=== PATIENT | female | born 1945 | race Caucasian/White ===

== ENCOUNTER 2016-10-21 10:15 | Inpatient (IN) ==
[2016-10-21] MEDS ORDERED: IOPAMIDOL 100 ML BOTTLE IJ ONE (10:16)
[2016-10-21] MEDS ORDERED: 0.9 % SODIUM CHLORIDE 1,000 ML IV ONE ×2 (10:28→11:15)
--- NOTE | 2016-10-21 10:58 | Emergency Department Note ---
Fever HPI - General Chief Complaint: Fever Stated Complaint: Fever, pain with urination, urinary frequency Time Seen by Provider: 10/21/16 10:48 Source: patient Mode of arrival: ambulatory Limitations: no limitations - History of Present Illness HPI Narrative: 71-year-old with a history of right flank pain present for the past 5 days. She said urgency, frequency and dysuria and thought she could take care of this on her own as she's been suspecting a UTI where she is running a low-grade temperature of 100 at this time. Complaining of nausea, but there's been no vomiting. - Related Data Home Medications Medication Instructions Recorded Confirmed ipratropium-albuterol 0.5 mg-3 3 ml INHALATION QID PRN ml 06/03/16 10/21/16 mg(2.5 mg base)/3 mL nebulization soln Gabapentin [Neurontin] 200 mg PO HS 10/21/16 10/21/16 Previous Rx's Medication Instructions Recorded Disability Parking Permit #1 each 09/18/15 hydrocodone 7.5 mg-acetaminophen 1 tab PO BID PRN #60 tab 10/24/15 325 mg tablet fluticasone 250 mcg-salmeterol 50 1 inh INHALATION Q12H #60 each 07/07/16 mcg/dose blistr powdr for inhalation ipratropium 20 mcg-albuterol 100 1 inh INHALATION Q6H #4 g 07/07/16 mcg/actuation mist for inhalation tizanidine 2 mg tablet 2 mg PO Q6H PRN #20 tab 09/14/16 prednisone 10 mg tablet 0 PO .COMPLEX #30 tab 09/29/16 Allergies Allergy/AdvReac Type Severity Reaction Status Date / Time codeine Allergy Unknown Verified 10/21/16 10:19 ibandronate sodium Allergy Unknown Verified 10/21/16 10:19 [From Boniva] clarithromycin [From Biaxin] AdvReac Headache Verified 10/21/16 10:19 moxifloxacin [From Avelox] AdvReac Headache Verified 10/21/16 10:19 Review of Systems All systems ED: reviewed and negative except as stated. Genitourinary: Reports: as per HPI, urgency, dysuria, frequency, other (RIGHT FLANK PAIN) Fever PMH - Past Medical History Medical history: Reports: arthritis, asthma, COPD, other (Osteoporosis, polio, COMPRESSION fracture) Surgical history ED: Reports: cholecystectomy Psychiatric history: Reports: no psych history - Social History smoking status: Former smoker Alcohol use: Reports: None Drug use: Reports: none Physical Exam - General Limitations: no limitations General appearance: alert - Head Head exam: atraumatic - Eye Eye exam: Present: normal appearance, PERRL - ENT ENT exam: normal exam, normal oropharynx - Neck Neck exam: Present: normal inspection, full ROM. Absent: trachea midline - Chest Chest inspection: Present: normal inspection - Respiratory Respiratory exam: Present: normal lung sounds bilaterally. Absent: respiratory distress, wheezes - Cardiovascular Cardiovascular exam: Present: regular rate, normal rhythm. Absent: bradycardia , tachycardia - Abdominal Exam Abdominal exam: Present: soft. Absent: distention, tenderness, guarding, rebound - Extremities Exam Extremities exam: Present: normal inspection, full ROM - Back Exam Back exam: Present: normal inspection, full ROM, CVA tenderness (R) - Psychiatric Psychiatric exam: Present: normal affect, normal mood Course Vital Signs Temperature 100.4 F H 10/21/16 10:16 Pulse Rate 124 H 10/21/16 10:16 Respiratory Rate 18 10/21/16 10:16 Blood Pressure 149/88 10/21/16 10:16 Pulse Oximetry (%) 88 L 10/21/16 10:16 Temperature 99.8 F H 10/21/16 13:14 Pulse Rate 95 H 10/21/16 15:39 Respiratory Rate 11 L 10/21/16 15:39 Blood Pressure 120/89 10/21/16 15:39 Pulse Oximetry (%) 93 10/21/16 15:39 Fever - [facility] Narrative Medical decision making narrative: WBC is 21,000, CT and chest x-ray reveals a right lower infiltrate. Possible mass in the right upper lobe seen on CT report recommended to have repeat CT after treatment of infiltrate. The patient is a smoker and says that this possibly may be Ca. Lactic is 0.9 dx right lower lobe pneumonia. Dr Smith contacted and pt to be admitted - Lab Data Result diagrams: 10/21/16 10:34 10/21/16 10:34 Lab Results 10/21/16 10/21/16 10/21/16 Range/Units 10:34 10:34 10:34 WBC 21.2 H (4.5-11.0) K/mcL RBC 4.69 (4.00-5.20) M/mcL Hgb 13.5 (12.0-15.0) g/dL Hct 41.8 (36.0-48.0) % MCV 89.2 (80.0-100.0) fL MCH 28.8 (26.0-34.0) pg MCHC 32.3 (31.0-36.0) g/dL RDW 13.8 (11.5-14.5) % Plt Count 519 H (140-440) K/mcL MPV 7.5 (7.4-10.4) fL Gran % Cancelled Lymph % (Auto) Cancelled [place] % (Auto) Cancelled Eos % (Auto) Cancelled Baso % (Auto) Cancelled Gran # Cancelled Lymph # Cancelled [place] # Cancelled Eos # Cancelled Baso # Cancelled Total Counted 100 Seg Neutrophils % 86 H (38-78) % Band Neutrophils % 3 (0-10) % Lymphocytes % 6 L (15-49) % Monocytes % (Manual) 2 (1-12) % Eosinophils % (Manual) 3 (0-7) % Differential Comment Cancelled Platelet Estimate Increased (NORMAL) RBC Morphology Normal (NORMAL) VBG Lactic Acid 0.9 (0.5-2.2) mmol/L Sodium 138 (133-145) mmol/L Potassium 4.4 (3.3-5.1) mmol/L Chloride 99 (96-108) mmol/L Carbon Dioxide 22 (22-30) mmol/L Anion Gap 17.0 H (8-16) BUN 12 (8-23) mg/dl Creatinine 0.7 (0.6-1.1) mg/dl GFR Calculation 88 Glucose 101 (70-105) mg/dL Calcium 9.4 (8.6-10.4) mg/dl Total Bilirubin 0.3 (0.0-1.0) mg/dL AST 12 (0-37) U/l ALT < 5 (0-40) U/l Alkaline Phosphatase 82 (39-117) U/L Total Protein 7.4 (5.9-8.4) gm/dL Albumin 3.8 (3.2-5.2) gm/dL Globulin 3.6 (2.2-3.7) gm/dL Albumin/Globulin Ratio 1.1 (1.0-2.3) Urine Color Urine Appearance Urine pH (5.0-9.0) Ur Specific [place] (1.000-1.035) Urine Protein (NEG) mg/dL Urine Glucose (UA) (NEG) mg/dL Urine Ketones (NEG) mg/dL Urine Occult Blood (<0.03) mg/dL Urine Nitrate (NEG) Urine Bilirubin (NEG) mg/dL Urine Urobilinogen (NEG) mg/dL Ur Leukocyte Esterase (NEG) /uL Urine RBC (0-1) /hpf Urine WBC (0-4) /hpf Ur Squamous Epith Cells (0-4) /hpf Urine Bacteria (0) /hpf Ur Culture Indicated? 10/21/16 Range/Units 11:11 WBC (4.5-11.0) K/mcL RBC (4.00-5.20) M/mcL Hgb (12.0-15.0) g/dL Hct (36.0-48.0) % MCV (80.0-100.0) fL MCH (26.0-34.0) pg MCHC (31.0-36.0) g/dL RDW (11.5-14.5) % Plt Count (140-440) K/mcL MPV (7.4-10.4) fL Gran % Lymph % (Auto) [place] % (Auto) Eos % (Auto) Baso % (Auto) Gran # Lymph # [place] # Eos # Baso # Total Counted Seg Neutrophils % (38-78) % Band Neutrophils % (0-10) % Lymphocytes % (15-49) % Monocytes % (Manual) (1-12) % Eosinophils % (Manual) (0-7) % Differential Comment Platelet Estimate (NORMAL) RBC Morphology (NORMAL) VBG Lactic Acid (0.5-2.2) mmol/L Sodium (133-145) mmol/L Potassium (3.3-5.1) mmol/L Chloride (96-108) mmol/L Carbon Dioxide (22-30) mmol/L Anion Gap (8-16) BUN (8-23) mg/dl Creatinine (0.6-1.1) mg/dl GFR Calculation Glucose (70-105) mg/dL Calcium (8.6-10.4) mg/dl Total Bilirubin (0.0-1.0) mg/dL AST (0-37) U/l ALT (0-40) U/l Alkaline Phosphatase (39-117) U/L Total Protein (5.9-8.4) gm/dL Albumin (3.2-5.2) gm/dL Globulin (2.2-3.7) gm/dL Albumin/Globulin Ratio (1.0-2.3) Urine Color Straw Urine Appearance Clear Urine pH 9.0 (5.0-9.0) Ur Specific [place] 1.010 (1.000-1.035) Urine Protein Neg (NEG) mg/dL Urine Glucose (UA) Negative (NEG) mg/dL Urine Ketones Neg (NEG) mg/dL Urine Occult Blood Neg (<0.03) mg/dL Urine Nitrate Neg (NEG) Urine Bilirubin Neg (NEG) mg/dL Urine Urobilinogen Neg (NEG) mg/dL Ur Leukocyte Esterase Neg (NEG) /uL Urine RBC 2 H (0-1) /hpf Urine WBC 0 (0-4) /hpf Ur Squamous Epith Cells < 1 (0-4) /hpf Urine Bacteria 0 (0) /hpf Ur Culture Indicated? No Disposition Clinical Impression: Lung mass Pneumonia Qualifiers: Laterality: right Lung location: lower lobe of lung Disposition: Xfer As Inpt ([facility]) Condition: Fair Referrals: Kev Roque MD [Primary Care Provider] -
[2016-10-21] MEDS ORDERED: ONDANSETRON 4 MG/2 ML VIAL IV ONE (11:02)
[2016-10-21] MEDS ORDERED: ACETAMINOPHEN 325 MG TABLET PO ONE (11:02)
[2016-10-21 11:12] LABS: Mean Cell Volume 89.2 fL (80.0-100.0); Mean Corpuscular HGB Conc 32.3 g/dL (31.0-36.0); Mean Corpuscular Hemoglobin 28.8 pg (26.0-34.0); Platelet Count 519 K/mcL (140-440); RBC 4.69 M/mcL (4.00-5.20); Red Cell Distribution Width 13.8 % (11.5-14.5)
[2016-10-21 11:38] LABS: Appearance,Urine CLEAR; Bacteria,Urine 0 /hpf (0); Bilirubin,Urine NEG (NEG); Color,Urine STRAW; Glucose,Urine (UA) NEGATIVE (NEG); Leukocyte Esterase,Urine NEG /uL (NEG); Nitrate,Urine NEG (NEG); Protein,Urine NEG (NEG); Urine Blood NEG mg/dL (<0.03); Urine RBC 2 /hpf (0-1); Urine Squamous Epithelial Cell < 1 /hpf (0-4); Urine WBC 0 /hpf (0-4); Urobilinogen,Urine NEG (NEG)
[2016-10-21 11:42] LABS: ALT/SGPT < 5 U/l (0-40); Albumin 3.8 gm/dL (3.2-5.2); Albumin/Globulin Ratio 1.1 (1.0-2.3); Alkaline Phosphatase 82 U/L (39-117); Blood Urea Nitrogen 12 mg/dl (8-23)
[2016-10-21 11:43] LABS: Band Neutrophils % 3 % (0-10); Eosinophils % (Manual) 3 % (0-7); Lymphocytes % 6 % (15-49); Monocytes % (Manual) 2 % (1-12); Platelet Estimate INCREASED (NORMAL); RBC Morphology NORMAL (NORMAL); Segmented Neutrophils % 86 % (38-78)
--- NOTE | 2016-10-21 13:03 | XRay Report ---
CLINICAL INFORMATION: Cough COMPARISON: 05/19/2016 FINDINGS: The heart is mildly enlarged, but unchanged. The mediastinum is unremarkable. 3.6 cm mass has developed in the perimediastinal right upper lobe. This could represent malignancy. Small infiltrate has developed in the right base with minor infiltrate developing in the left base IMPRESSION: 3.6 cm mass in the right upper lobe suspicious for lung carcinoma - suggest chest CT Small bibasilar infiltrates Interpreted and Authenticated by: Marc Morton 10/21/16
[2016-10-21] MEDS ORDERED: cefTRIAXone 1 GM in DEXTROSE 5% IN WATER 50 ML IV ONE ×2 (13:08→16:30)
[2016-10-21] MEDS ORDERED: PANTOPRAZOLE 40 MG TABLET PO ONE (14:09)
--- NOTE | 2016-10-21 16:21 | Cat Scan Report ---
CLINICAL INFORMATION: Fever and elevated white blood cell count mass in the right upper lobe on chest x-ray and also abdominal pain COMPARISON: None. TECHNIQUE: Enteric contrast was utilized. 80 cc of Isovue-300 were injected intravenously, and 50 seconds later 2.5 mm helical slices were obtained from the lung apices through the subtrochanteric regions of the femurs. Following reconstruction, 2.5 mm sagittal, coronal and axial reformatted images were processed and reviewed at multiple windows and levels. 7 mm MIP reconstructions were obtained through the lungs to optimize nodule detection. FINDINGS: Pulmonary parenchymal windows show severe centrilobular emphysema changes featuring elevated lung volumes, chronic bronchitis and scattered scarring. There is a five cm mass extending from the right suprahilar region into the posterior segment of the right upper lobe with stellate irregular borders. It is suspicious for lung carcinoma. Infection would be highly unlikely. There are scattered nodules throughout the right lun.3 mm right upper lobe image 35, 12.7 mm right upper lobe image 35, 6 mm in the right middle lobe image 63 3-mm in the right middle lobe image 64, 5-mm the lateral segment of the right middle lobe image 68 6-mm, in the lateral segment right lower lobe image 72 and 6 mm the lateral left lower lobe (image 87.A moderate sized patchy alveolar infiltrate is seen in the posterior right lower lobe. Small patchy bullae seen in the posterior left lower lobe. Mediastinal windows show a moderate size hiatal hernia. The heart is mildly enlarged with calcific plaque in the proximal coronary arteries. The pulmonary arteries are mildly enlarged suggesting pulmonary hypertension related to COPD. There are few mildly enlarged right hilar lymph nodes ranging up to 12 mm. Esophagus is grossly normal. Thyroid is unremarkable. Images should the abdomen show the gallbladder is surgically absent. The liver, bile ducts, both kidneys, adrenal glands, spleen, pancreas and aorta including aortic branches are normal in size, configuration and attenuation without focal lesion. There is no free air, free fluid and no adenopathy. Images should the pelvis show urinary bladder to be grossly normal. The uterus is not identified and may been surgically removed. Multiple old. Compression fractures are seen throughout the thoracic and lumbar spine many of which been treated kyphoplasty. IMPRESSION: 1. 5 cm right suprahilar mass emanating into the posterior segment - right upper lobe. This is suspicious for primary lung carcinoma. Consolidated infection would be unlikely based on appearance. Suggest: Treatment for pneumonia and follow-up plain film in 2-3 weeks. If there is a persistent right upper lobe mass on that exam, as suspected, then CT-guided biopsy is recommended 2. Moderate sized pneumonia in the posterior right lower lobe with small infiltrate in the posterior left lower lobe. 3. Scattered pulmonary nodules - with a preponderance in the right lung. They may be granulomas and/or metastases. 4. Severe centrilobular emphysema and probable pulmonary hypertension. 5. Moderate-sized hiatal hernia 6. No abnormalities seen within the abdomen or pelvis. 7. Multiple compression fractures throughout the thoracic and lumbar spine which are almost certainly chronic many of the abdomen treated with kyphoplasty Interpreted and Authenticated by: Marc Morton 10/21/16
[2016-10-21] MEDS ORDERED: MAGNESIUM SULFATE 2 GM/50 ML BAG IV PRN (16:23)
[2016-10-21] MEDS ORDERED: tiZANidine 4 MG TABLET PO PRN (16:23)
[2016-10-21] MEDS ORDERED: POTASSIUM CHLORIDE 20 MEQ PACKET PO PRN (16:23)
[2016-10-21] MEDS ORDERED: ONDANSETRON 4 MG/2 ML VIAL IV PRN (16:23)
[2016-10-21] MEDS ORDERED: ACETAMINOPHEN 325 MG TABLET PO PRN (16:23)
[2016-10-21] MEDS ORDERED: guaiFENesin/CODEINE 10 ML UDC PO PRN (16:23)
[2016-10-21] MEDS ORDERED: ACETAMINOPHEN 1,000 MG/100 ML BOTTLE IV PRN (16:23)
[2016-10-21] MEDS: 0.9 % SODIUM CHLORIDE 1,000 ML IV SCH (16:40)
[2016-10-21] MEDS ORDERED: LEVOFLOXACIN 750 MG/150 ML BAG IV SCH (17:30)
[2016-10-21] MEDS: IPRATROPIUM/ALBUTEROL 3 ML AMPUL.NEB NEB PRN (18:37)
[2016-10-21] MEDS: GABAPENTIN 100 MG CAPSULE PO SCH (19:32)
[2016-10-21] MEDS: HEPARIN 5,000 UNIT/ML VIAL SQ SCH (19:32)
[2016-10-21] MEDS: SENNOSIDES/DOCUSATE SODIUM 1 TAB TABLET PO SCH (19:32)
[2016-10-21] MEDS: FLUTICASONE/SALMETEROL 250/50 INHALER #14 INH SCH (19:32)
[2016-10-21] MEDS: DOCUSATE SODIUM 100 MG CAPSULE PO SCH (19:32)
--- NOTE | 2016-10-21 19:49 | History and Physical Report ---
DATE OF ADMISSION: 10/21/2016 PRIMARY CARE PHYSICIAN: Kev Roque MD; Jered George MD DATE OF ADMISSION: 10/21/2016 REASON FOR ADMISSION: Worsening shortness of breath, weakness, fever, chills, dizziness. HISTORY OF CHIEF COMPLAINT: The patient is a 71-year-old with known history of COPD and uses oxygen at night, who comes to [facility] ER with roughly 1 week onset of weakness, dysuria, headache that has progressed. However, in the last 24 hours, the patient has noted increasing back pain, dizziness, and dark odorous urine. She has tried to stay hydrated, but because of decreased ability to function she came to [facility] ER. Initial workup was significant for a white count over 21,000 along with chest infiltrates suggestive of pneumonia and possible mass lesion. Hospitalist service was consulted after the patient received initial antibiotics. At the time of examination, the patient is alert and oriented. She denies active distress. She feels better after crystalloids and antibiotic administration. She denies weight loss. She does endorse to increase left supraclavicular fullness. She denies drenching sweats, glandular swelling. She denies diarrhea, abdominal pain, nausea, vomiting. She endorses to headache, but no photophobia, vision changes, bleeding, skin rash, or joint swelling. REVIEW OF SYSTEMS: Ten-point review of system was performed and negative except the ones discussed above. PAST MEDICAL HISTORY: 1. History of COPD. Uses oxygen at night. 2. Degenerative joint disease. 3. Neuropathy. CURRENT MEDICATIONS: Tizanidine 2 mg every 6 hours. DuoNebs as needed. Gabapentin 200 at bedtime. Prednisone 10 mg. Hydrocodone/acetaminophen 7.5/325. SOCIAL HISTORY: The patient sees primary care physician, Mya. She is a FULL CODE STATUS. Quit smoking 3 years ago. She is up to date on pneumonia and flu vaccine. She is , lives alone fairly independently in [place]. No history of substance abuse. FAMILY HISTORY: Significant for coronary artery disease in aunt, mother, sister and father. Daughter with migraine. PHYSICAL EXAMINATION: GENERAL: The patient is alert and oriented. Denies any active distress. VITAL SIGNS: BMI 18.6. Height 5 feet 6 inches. Blood pressure 135/87, respiratory rate 16, temperature 98.4, pulse 95, sats 93 percent on 2 liters of oxygen. HEENT: Pupils symmetric. Oral cavity dry. No ear or nose discharge. Head is normocephalic and atraumatic. NECK: No lymphadenopathy. HEART: S1, S2, regular rhythm. Tachycardia. ESM grade 1. LUNGS: Diminished breath sounds at bases. Bronchial breath sounds right posterior chest. Left supraclavicular fullness. ABDOMEN: Soft and nontender. LOWER EXTREMITIES: No cyanosis or clubbing. No joint swelling. Normal range of motion of the joints with no joint erythema. SKIN: No suspicious lesions. PSYCHIATRIC: Alert and cooperative. NEURO: Nonfocal. Normal high function. LABS AND IMAGING: CT chest: A 5 cm suprahilar mass right upper lobe along with posterior right lower lobe and posterior left lower lobe infiltrate. White count 21,200, hemoglobin 13.5, platelets , ESR 96. Lactic acid 0.9. Sodium 130, potassium 4.4, creatinine 0.7, BUN 12, CRP 4. UA unremarkable. Strep pneumo/mycoplasma negative. ASSESSMENT AND PLAN: A 71-year-old admitted with multifocal pneumonia along with suspicion for right upper lobe mass. 1. Multifocal pneumonia, likely community-acquired. Continue Rocephin in light of severe sepsis. 2. Sepsis secondary to above. Continue crystalloids and antibiotics and management per guidelines. 3. Hypoxia secondary to underlying chronic obstructive pulmonary disease with superimposed pneumonia. Continue bronchodilators, oxygen support. 4. Right upper lobe mass. Radiology recommends repeat CT after pneumonia treatment. 5. Other prior medical issues including history of neuropathy. Continue gabapentin. 6. Degenerative joint disease. Continue hydrocodone/acetaminophen. PLAN FOR TODAY: 1. Admit as inpatient. 2. Sepsis management per guidelines. 3. Broad antibiotic coverage. 4. Preexisting medical condition management as above. The patient will require a minimum of 48 hours admission in light of CURB-65 score of 3. AA:bakari Job ID: [id number] Doc ID: [id number] Abhishek AGUILAR
[2016-10-21] MEDS: HYDROCODONE/APAP 7.5/325MG TABLET PO PRN (22:31)
[2016-10-21] MEDS: 0.9 % SODIUM CHLORIDE 10 ML SYRINGE IV SCH (23:56)
[2016-10-22] MEDS: IPRATROPIUM/ALBUTEROL 3 ML AMPUL.NEB NEB PRN ×3 (04:43→20:51)
[2016-10-22] MEDS: HYDROCODONE/APAP 7.5/325MG TABLET PO PRN ×2 (04:59→12:49)
[2016-10-22] MEDS: 0.9 % SODIUM CHLORIDE 10 ML SYRINGE IV SCH ×3 (05:52→20:55)
[2016-10-22 05:53] LABS: Mean Cell Volume 89.5 fL (80.0-100.0); Mean Corpuscular Hemoglobin 29.5 pg (26.0-34.0); Platelet Count 448 K/mcL (140-440); RBC 3.76 M/mcL (4.00-5.20); Red Cell Distribution Width 13.9 % (11.5-14.5)
[2016-10-22 06:51] LABS: ALT/SGPT < 5 U/l (0-40); Albumin 2.8 gm/dL (3.2-5.2); Alkaline Phosphatase 73 U/L (39-117); Bilirubin,Direct < 0.2 mg/dL (0.0-0.3); Blood Urea Nitrogen 8 mg/dl (8-23); Gamma Glutamyl Transpeptidase 26 U/L (5-36); Magnesium 1.9 mg/dL (1.6-2.5); Uric Acid 3.7 mg/dL (2.5-8.0)
[2016-10-22 06:56] LABS: Band Neutrophils % 3 % (0-10); Eosinophils % (Manual) 1 % (0-7); Lymphocytes % 4 % (15-49); Monocytes % (Manual) 8 % (1-12); Platelet Estimate INCREASED (NORMAL); RBC Morphology NORMAL (NORMAL); Segmented Neutrophils % 82 % (38-78)
[2016-10-22] MEDS: PANTOPRAZOLE 40 MG TABLET PO SCH (07:26)
[2016-10-22] MEDS: MULTIVIT,THER IRON,CA,FA & MIN 1 TABLET PO SCH (09:23)
[2016-10-22] MEDS: HEPARIN 5,000 UNIT/ML VIAL SQ SCH ×2 (09:23→20:55)
[2016-10-22] MEDS: DOCUSATE SODIUM 100 MG CAPSULE PO SCH ×2 (09:23→20:55)
[2016-10-22] MEDS: cefTRIAXone 2 GM in DEXTROSE 5% IN WATER 50 ML IV SCH (09:26)
--- NOTE | 2016-10-22 10:22 | Internal Med Progress Note ---
Medical - PN: Subj Patient information: Note initiated : 10/22/16 at 10:19 am Service Date, if different from initiated Date: [] Patient: Josephine Aj 71 y/o F admitted on 10/21/16 for Fever, Pain w/ Urination/Pneumonia, Sepsis. Chief Complaint: [] Interval history: 10/21- 71-year-old withpast history of smoking/emphysema admitted with fevers shaking chills along with sepsis from multifocal pneumonia. CT demonstrates possible right upper lobe mass. White count 21,000. On broad antibiotic coverage. PSI score 100. Admitted as inpatient 10/22-patient doing well. White count down to 12,000. Feeling a lot better. complains of persistent headache. CT head noncontrast pending. no overnight fever chills nausea vomiting or concerns per staff. radiologist recommends repeating chest CT after interval resolution of pneumonia to assess for lung mass - Constitutional Vitals: Vital Signs Temp Pulse Resp BP Pulse Ox 98.0 F 79 20 112/67 94 10/22/16 07:34 10/22/16 04:00 10/22/16 07:34 10/22/16 07:34 10/22/16 07:36 Period Temp Pulse Resp BP Sys/Oliva Pulse Ox Last 24 Hr 97.4 F-98.4 F 79-91 16-20 100-133/57-71 92-96 Intake and Output 10/21/16 10/22/16 10/22/16 21:59 05:59 13:59 Intake Total 250 / 300 200 / 200 Output Total Balance 250 / 300 199 / 199 Weight 114 lb Intake & Output: Intake & Output 10/21/16 10/22/16 10/22/16 21:59 05:59 13:59 Intake Total 250 / 300 200 / 200 Output Total Balance 250 / 300 199 / 199 Weight 114 lb Intake: IV 50 / 50 Rocephin 1 gm In Dextrose 50 / 50 5% in Water 50 ml @ 100 mls/hr IV ONCE ONE Rx#: [id number] Oral 200 / 200 200 / 200 Output: Void Amount Other: Meal Dinner Percent of Meal Consumed 90 # Voids 1 General appearance: cooperative, no acute distress Exam: alert oriented nonlabored breathing Nondistended abdomen bronchial breath sounds right posterior chest No anxiety Medical - PN: Obj Da - Labs CBC & Chem 7: 10/22/16 04:35 10/22/16 04:35 Labs: Abnormal Lab Results 10/22/16 10/22/16 04:35 04:35 WBC 12.1 H RBC 3.76 L Hgb 11.1 L Hct 33.7 L Plt Count 448 H Seg Neutrophils % 82 H Lymphocytes % 4 L Calcium 8.5 L Total Protein 5.7 L Albumin 2.8 L Meds: Medications Acetaminophen (Tylenol) 650 mg PO Q4-6HP PRN PRN Reason: PAIN/FEVER > 101 Acetaminophen/Hydrocodone Bitart ([place] 7.5/325mg) 1 tab PO BIDP PRN PRN Reason: pain Last Admin: 10/22/16 04:59 Dose: 1 tab Albuterol/Ipratropium (Duoneb) 3 ml NEB Q4HP PRN PRN Reason: Shortness Of Breath Last Admin: 10/22/16 04:43 Dose: 3 ml Docusate Sodium (Colace) 100 mg PO BID [facility] Last Admin: 10/22/16 09:23 Dose: 100 mg Gabapentin (Neurontin) 200 mg PO HS [facility] Last Admin: 10/21/16 19:32 Dose: 200 mg Heparin Sodium (Porcine) (Heparin) 5,000 unit SQ Q12 [facility] Last Admin: 10/22/16 09:23 Dose: 5,000 unit Levofloxacin (Levaquin) 750 mg in 150 mls @ 100 mls/hr IV Q48H [facility] Last Admin: 10/21/16 17:44 Dose: 100 mls/hr Magnesium Sulfate (Magnesium Sulfate) 2 gm in 50 mls @ 50 mls/hr IV UD PRN PRN Reason: MG = or < 1.7 Sodium Chloride (Sodium Chloride 0.9%) 1,000 mls @ 50 mls/hr IV .Q20H [facility] Stop: 10/24/16 04:22 Last Admin: 10/21/16 16:40 Dose: 50 mls/hr Acetaminophen (Ofirmev) 1,000 mg in 100 mls @ 200 mls/hr IV Q6HP PRN PRN Reason: PAIN/FEVER > 101 Ceftriaxone Sodium 2 gm/ (Dextrose) 50 mls @ 100 mls/hr IV DAILY [facility] Last Admin: 10/22/16 09:26 Dose: 100 mls/hr Iron Carb/Multivit/[place]/Folic Acid (Multivitamin W/Minerals) 1 tab PO DAILY [facility] Last Admin: 10/22/16 09:23 Dose: 1 tab Ondansetron HCl (Zofran) 4 mg IV Q4-6HP PRN PRN Reason: Nausea And Vomiting Last Admin: 10/21/16 22:31 Dose: 4 mg Pantoprazole Sodium (Protonix) 40 mg PO QAMAC [facility]ISA Last Admin: 10/22/16 07:26 Dose: 40 mg Potassium Chloride (Klor-Con) 40 meq PO DAILYP PRN PRN Reason: K+ < 3.5 Fluticasone/Salmeterol (Advair 250-50 Diskus) 1 puff INH Q12H [facility] Last Admin: 10/21/16 19:32 Dose: Not Given Senna/Docusate Sodium (Senna Plus Tablet) 1 tab PO HS [facility] Last Admin: 10/21/16 19:32 Dose: 1 tab Sodium Chloride (Saline Flush) 10 ml IV Q8 [facility] Last Admin: 10/22/16 05:52 Dose: Not Given Tizanidine HCl (Zanaflex) 2 mg PO Q6HP PRN PRN Reason: Muscle Spasticity Medical - PN: A/P - Time Spent With Patient Total time spent is greater than 50% in coordination of care (as documented) at patient's floor/unit and/or counseling patient: 25 - 35 minutes (1) Community acquired pneumonia Status: Acute Assessment and plan: * community-acquired pneumonia-clinical improvement noted on antibiotic coverage. PSI score 100. Continue Levaquin and Rocephin * Sepsis secondary to above clinically improving-white count down from 21,000-12 * lung mass- repeat interval CT in 2-3 weeks as per radiologist's recommendation after pneumonia resolution for further workup of lung mass as outpatient. * History of COPD continue bronchodilators * DJD joint disease continue oral opioids * Neuropathy continue gabapentin * Full CODE STATUS Plan * Continue antibiotic coverage * bronchodilators oxygen * physical therapy * Pre-existing medical condition management as above * Repeat CT in 2-3 weeks as per radiologist's recommendation for lung mass evaluation Current Visit: Yes Medical - PN: Qual - Stroke Symptom Onset Unknown: No - VTE Deep Vein Thrombosis/Pulmonary Embolism Present on Admission: No
[2016-10-22] MEDS: FLUTICASONE/SALMETEROL 250/50 INHALER #14 INH SCH ×2 (11:07→20:54)
--- NOTE | 2016-10-22 12:32 | Cat Scan Report ---
CLINICAL INFORMATION: Headache COMPARISON: None. TECHNIQUE: 2.5 mm helical slices were obtained in the skull base to vertex. Following reconstruction, axial reformatted images were reviewed at bone and parenchymal windows. FINDINGS: The ventricles, sulci, fissures, and cisterns are symmetrically enlarged bowel mild age-related atrophy. There is a 12 mm dural based partially calcified mass in the right frontal region which is likely a small meningioma. It is almost certainly benign. No extra-axial fluid collections. There is mild chronic ischemic changes in the deep cerebral white matter. No acute cerebral hemorrhage, mass effect, edema or other acute finding. IMPRESSION: 12 mm partially calcified extra-axial lesion - right frontal lobe should represent a small meningioma. It is almost certainly benign Minimal atrophy and chronic ischemic changes in cerebral white matter typical for age No hemorrhage or other acute finding. Interpreted and Authenticated by: Marc Morton 10/22/16
[2016-10-22] MEDS ORDERED: OMEPRAZOLE 20 MG CAPSULE PO ONE ×2 (14:05→14:07)
[2016-10-22] MEDS: 0.9 % SODIUM CHLORIDE 1,000 ML IV SCH (18:03)
[2016-10-22] MEDS: SENNOSIDES/DOCUSATE SODIUM 1 TAB TABLET PO SCH (20:55)
[2016-10-22] MEDS: GABAPENTIN 100 MG CAPSULE PO SCH (20:55)
[2016-10-23] MEDS: 0.9 % SODIUM CHLORIDE 10 ML SYRINGE IV SCH (04:50)
[2016-10-23] MEDS: IPRATROPIUM/ALBUTEROL 3 ML AMPUL.NEB NEB PRN (06:04)
[2016-10-23 06:36] LABS: Mean Cell Volume 89.9 fL (80.0-100.0); Mean Corpuscular HGB Conc 32.7 g/dL (31.0-36.0); Mean Corpuscular Hemoglobin 29.4 pg (26.0-34.0); Platelet Count 500 K/mcL (140-440); RBC 3.83 M/mcL (4.00-5.20); Red Cell Distribution Width 13.6 % (11.5-14.5)
[2016-10-23 06:59] LABS: ALT/SGPT < 5 U/l (0-40); Albumin 2.8 gm/dL (3.2-5.2); Albumin/Globulin Ratio 0.9 (1.0-2.3); Alkaline Phosphatase 74 U/L (39-117); Bilirubin,Direct < 0.2 mg/dL (0.0-0.3); Blood Urea Nitrogen 7 mg/dl (8-23); Gamma Glutamyl Transpeptidase 24 U/L (5-36); Magnesium 1.9 mg/dL (1.6-2.5); Uric Acid 3.8 mg/dL (2.5-8.0)
[2016-10-23] MEDS: PANTOPRAZOLE 40 MG TABLET PO SCH (07:33)
[2016-10-23] MEDS: MULTIVIT,THER IRON,CA,FA & MIN 1 TABLET PO SCH (08:43)
[2016-10-23] MEDS: HEPARIN 5,000 UNIT/ML VIAL SQ SCH (08:44)
[2016-10-23] MEDS: DOCUSATE SODIUM 100 MG CAPSULE PO SCH (08:44)
[2016-10-23] MEDS: cefTRIAXone 2 GM in DEXTROSE 5% IN WATER 50 ML IV SCH (08:45)
[2016-10-23 09:23] LABS: Eosinophils % (Manual) 2 % (0-7); Lymphocytes % 16 % (15-49); Monocytes % (Manual) 6 % (1-12); Platelet Estimate INCREASED (NORMAL); RBC Morphology NORMAL (NORMAL); Segmented Neutrophils % 76 % (38-78)
[2016-10-23] MEDS: FLUTICASONE/SALMETEROL 250/50 INHALER #14 INH SCH (09:25)
--- NOTE | 2016-10-23 10:47 | Discharge Summary ---
Medical - DS: Prov Patient information: Note initiated : 10/23/16 at 10:44 am Service Date, if different from initiated Date: [] Patient: Josephine Aj 71 y/o F admitted on 10/21/16 for Fever, Pain w/ Urination/Pneumonia, Sepsis. Chief Complaint: [] Date of admission: 10/21/16 16:15 Discharge date: 10/23/16 Primary care physician: [f_Reg Prim Care Provider] Medical - DS: Meds - Discharge Medications Prescriptions: Cefdinir 300 mg PO BID #10 capsule Levofloxacin [Levaquin] 750 mg PO DAILY #5 tablet Active and Home Medications: Home Medications Disability Parking Permit #1 each 09/18/15 [Rx Confirmed 06/03/16 Last Taken Unknown] hydrocodone 7.5 mg-acetaminophen 325 mg tablet 1 tab PO BID PRN #60 tab [Rx Confirmed 10/21/16 Last Taken Unknown] ipratropium-albuterol 0.5 mg-3 mg(2.5 mg base)/3 mL nebulization soln 3 ml INHALATION QID PRN ml 06/03/16 [History Confirmed 10/21/16 Last Taken Unknown] fluticasone 250 mcg-salmeterol 50 mcg/dose blistr powdr for inhalation 1 inh INHALATION Q12H #60 each 07/07/16 [Rx Confirmed 10/21/16 Last Taken Unknown] ipratropium 20 mcg-albuterol 100 mcg/actuation mist for inhalation 1 inh INHALATION Q6H #4 g 07/07/16 [Rx Confirmed 10/21/16 Last Taken Unknown] tizanidine 2 mg tablet 2 mg PO Q6H PRN #20 tab 09/14/16 [Rx Confirmed 10/21/16 Last Taken Unknown] prednisone 10 mg tablet 0 PO .COMPLEX #30 tab 09/29/16 [Rx Last Taken Unknown] Gabapentin [Neurontin] 200 mg PO HS 10/21/16 [History Confirmed 10/21/16 Last Taken Unknown] Cefdinir 300 mg PO BID #10 capsule 10/23/16 [Rx Last Taken Unknown] Levofloxacin [Levaquin] 750 mg PO DAILY #5 tablet 10/23/16 [Rx Last Taken Unknown] Medical - DS: Hosp Hospital course: DISCHARGE DIAGNOSIS * Community-acquired pneumonia-clinical improvement noted on antibiotic coverage. PSI score 100. discharging on oral antibiotics for additional 5 days * Sepsis secondary to above -clinically resolved, white count down from 21,000- 8000 * lung mass- repeat interval CT in 2-3 weeks as per radiologist's recommendation. Primary care physician to coordinate * History of COPD continue bronchodilators * DJD joint disease continue oral opioids * Neuropathy continue gabapentin BRIEF HOSPITAL COURSE 10/21- 71-year-old with past history of smoking/emphysema admitted with fevers shaking chills along with sepsis from multifocal pneumonia. CT demonstrates possible right upper lobe mass. White count 21,000. On broad antibiotic coverage. PSI score 100. Admitted as inpatient 10/22-patient doing well. White count down to 12,000. Feeling a lot better. complains of persistent headache. CT head noncontrast pending. no overnight fever chills nausea vomiting or concerns per staff. radiologist recommends repeating chest CT after interval resolution of pneumonia to assess for lung mass 10/23-patient doing better. No overnight events. as per staff. No fever chills nausea vomiting. Requesting discharge. Feels at baseline. Discussed continuing antibiotics for additional 5 days oral Levaquin/third generation cephalosporin. She will follow up with Dr. Kev Roque and a repeat CT scan of chest around November 11 for evaluation of lung mass and subsequent biopsy coordination Discharge diagnosis: . - Time Spent with Patient Total time spent providing and/or coordinating discharge services: Greater than 30 minutes Medical - DS: Exam - Constitutional Vitals: Vital Signs Temp Pulse Pulse Pulse Resp BP BP 10/23/16 07:20 97.3 F L 88 24 122/72 10/23/16 06:27 88 10/23/16 04:00 97.9 F 86 16 127/69 10/22/16 23:54 97.5 F L 81 18 100/61 10/22/16 20:51 90 18 10/22/16 19:54 98.8 F 84 18 104/66 10/22/16 16:00 98.9 F 16 105/63 10/22/16 14:59 87 16 10/22/16 12:00 98.2 F 16 116/56 Pulse Ox 10/23/16 07:20 91 10/23/16 06:27 91 10/23/16 04:00 93 10/22/16 23:54 93 10/22/16 20:51 10/22/16 19:54 94 10/22/16 16:00 93 10/22/16 14:59 10/22/16 12:00 94 Intake and Output 10/22/16 10/23/16 10/23/16 21:59 05:59 13:59 Intake Total 200 / 200 360 / 360 Output Total 500 / 500 Balance -300 / -300 360 / 360 Intake: Oral 200 / 200 360 / 360 Output: Void Amount 500 / 500 Other: Meal Lunch Breakfast Percent of Meal Consumed 25% 100% Feeding Ability Independent # Voids 1 1 Weight 109 lb Medical - DS: Data Labs on day of discharge: Labs from last 24 hours 10/23/16 10/23/16 05:20 05:20 WBC 8.3 RBC 3.83 L Hgb 11.2 L Hct 34.4 L MCV 89.9 MCH 29.4 MCHC 32.7 RDW 13.6 Plt Count 500 H MPV 7.5 Total Counted 100 Seg Neutrophils % 76 Band Neutrophils % Not Reportable Lymphocytes % 16 Monocytes % (Manual) 6 Eosinophils % (Manual) 2 Platelet Estimate Increased RBC Morphology Normal Sodium 141 Potassium 3.7 Chloride 105 Carbon Dioxide 22 Anion Gap 14.0 BUN 7 L Creatinine 0.6 GFR Calculation 92 Glucose 90 Uric Acid 3.8 Calcium 8.6 Phosphorus 3.5 Magnesium 1.9 Total Bilirubin < 0.2 Direct Bilirubin < 0.2 GGT 24 AST 10 ALT < 5 Alkaline Phosphatase 74 Lactate Dehydrogenase 197 Total Protein 5.9 Albumin 2.8 L Globulin 3.1 Albumin/Globulin Ratio 0.9 L Triglycerides 101 Medical - DS: A/P - Patient/Caregiver Discharge Instructions Activity: as per physical therapy (ere negative for ) Diet: Regular Diet Additional Instructions: Follow-up PCP in 5 days I recommend physician to check CBC BMP as a posthospital follow-up and Chest CT in 3 week. Antibiotics for 5 days All meals on chair sitting upright at 90 degrees to prevent aspiration Return to ER if worsening fever chills shortness of breath, diarrhea Review risk and side effect profile of medications including antibiotics. Side effect may include mild to severe reaction including rash, diarrhea, cdiff and even which can be prevented by close follow-up with PCP and monitoring for side effects Continue diet and activity as advised Discussed importance of medication adherence Please review medication list with patient prior to discharge Please schedule follow-up with PCP/Providers prior to discharge and provide printouts Portions of this chart may have been created with [employer] voice recognition software. Occasional wrong-word or ?sound-like? substitutions may have occurred due to the inherent limitations of voice recognition software. Please read the chart carefully and recognize, using context, where the substitutions have occurred. CC- PCP Prescriptions: Cefdinir 300 mg PO BID #10 capsule Levofloxacin [Levaquin] 750 mg PO DAILY #5 tablet - Problem Maintenance (1) Community acquired pneumonia Status: Acute - Follow up Plan Follow up with: Kev Roque MD [Primary Care Provider] - 11/05/16 1:15 pm Disposition: Home, Self-Care Prognosis: Fair Rehab Potential: Fair I certify that the patient requires SNF services: No Overall status at discharge: patient is progressing back to baseline Medical - DS: Qual - VTE Deep Vein Thrombosis/Pulmonary Embolism Present on Admission: No
== END 2016-10-23 12:35 | disposition home or self-care (01) | DRG 871 ==
LOC: ED 10:15 → ICU 16:15 → MEDSUR 10-22 16:20
PROVIDERS: ADMIT Internal Medicine; ATTEND Internal Medicine